=== PATIENT | female | born 1965 | race Caucasian/White ===

== ENCOUNTER 2017-08-21 01:24 | Emergency (ER) | payer OTHER ==
[2017-08-21 01:39] VITALS: BMI 33.2
--- NOTE | 2017-08-21 02:26 | ED PDOC ---
Arrival/HPI - General Chief Complaint: Alcohol Ingestion Time Seen by Provider: 08/21/17 01:59 Historian: EMS, Police EM Caveat: Uncooperative - History of Present Illness Narrative History of Present Illness (Text): 08/21/17 02:23 A 52 year old female, whose past medical history includes alcohol abuse, is brought into the emergency department by Deidre ANNE after being found unconscious on a lawn. The patient was combative, verbally abusive with slurred speech upon arrival and a danger to staff. Patient ROS/HPI limited due to intoxication and uncooperativity. Time/Duration: Prior to Arrival Symptom Onset: Sudden Symptom Course: Unchanged Activities at Onset: Rest, Light Context: Street Past Medical History - Provider Review Nursing Documentation Reviewed: Yes - Psychiatric Hx Substance Use: No - Past Surgical History Past Surgical History: Non-Contributing Family/Social History - Physician Review Nursing Documentation Reviewed: Yes Family/Social History: No Known Family HX Smoking Status: Unknown If Ever Smoked Hx Alcohol Use: Yes Hx Substance Use: No Allergies/Home Meds Allergies/Adverse Reactions: Allergies Unobtainable Allergy (Verified 08/21/17 01:39) Home Medications: Home Meds Medication Instructions Recorded Confirmed Unobtainable 08/21/17 08/21/17 Review of Systems - Physician Review All systems were reviewed & negative as marked: Yes - Review of Systems Systems not reviewed;Unavailable: Intoxicated Physical Exam - Physical Exam Physical Exam Limitations: Intoxication, Uncooperative Vital Signs Reviewed: Yes (Pt too combative for exam,will sedate first) Vital Signs Pulse Resp BP Pulse Ox 08/21/17 01:59 102 H 22 111/60 98 Blood Pressure: Hypertensive Pulse: Tachycardic Respiratory Rate: Tachypneic Appearance: Positive for: Non-Toxic Pain Distress: None Mental Status: Positive for: Lethargic - Systems Exam Head: Present: Atraumatic Pupils: Present: PERRL Extroacular Muscles: Present: EOMI Conjunctiva: Present: Normal Ears: Present: Normal Mouth: Present: Moist Mucous Membranes Nose (External): Present: Atraumatic Nose (Internal): Present: Normal Inspection Neck: Present: Normal Range of Motion. No: MIDLINE TENDERNESS Respiratory/Chest: Present: Clear to Auscultation, Good Air Exchange Cardiovascular: Present: Regular Rate and Rhythm Abdomen: No: Tenderness, Rebound, Guarding Back: Present: Normal Inspection Upper Extremity: Present: Normal Inspection Lower Extremity: Present: Normal Inspection Neurological: Present: GCS=15 Skin: Present: Warm, Dry Lymphatic: No: Cervical Adenopathy Psychiatric: Present: Intoxicated Medical Decision Making ED Course and Treatment: 08/21/17 02:26 Impression: A 52 year old female is brought into the emergency department by Deidre ANNE after being found unconscious on a lawn. Plan: -- EKG -- Chest X-ray -- Labs -- Urinalysis -- Reassess and disposition Progress Notes: 08/21/17 02:28: Patient was given Ativan and Geodon and was placed in 4 point restraints as a result of her combative behavior. While waiting for medication to take effect, patient's family arrived to the emergency department and did not wish any further evaluation and are willing to take full custody of patient. Patient will be released to their care. Leaving Against Medical Advice (AMA): The patient is choosing to leave against medical advice. I have personally explained to the patient that choosing to do so may result in permanent bodily harm or . I have discussed at great length that without further evaluation and monitoring there may be unforeseen circumstances and/or deterioration causing permanent bodily harm or as a result of their choice. The patient is alert, oriented, and shows the mental capacity to make clear decisions regarding the patients health care at this time. The patient continues to wish to leave against medical advice. In light of the patients decision to leave against medical advice, follow-up has been arranged and the patient is aware of the importance to following up as instructed. The patient has been advised that they should return to the emergency room immediately if they change their mind at any time, or if their condition begins to change or worsen in any way. Reassessment Condition: Improving,but remains with symptoms - Medication Orders Current Medication Orders: Discontinued Medications Lorazepam (Ativan) 1 mg IM ONCE ONE PRN Reason: Protocol Stop: 08/21/17 02:43 Last Admin: 08/21/17 02:48 Dose: Not Given Non-Admin Reason: Patient Refused Ziprasidone (Geodon Inj) 20 mg IM STAT STA PRN Reason: Protocol Stop: 08/21/17 02:43 Last Admin: 08/21/17 01:59 Dose: 20 mg IM Administration Charges Document 08/21/17 01:59 SS (Rec: 08/21/17 02:48 SS [id number]) Injection Site MAR Injection Site Right Deltoid Charges for Administration # of IM Administrations 1 - Scribe Statement The provider has reviewed the documentation as recorded by the Galenibe Holly Garcia Provider Galenibe Attestation: All medical record entries made by the Scribe were at my direction and personally dictated by me. I have reviewed the chart and agree that the record accurately reflects my personal performance of the history, physical exam, medical decision making, and the department course for this patient. I have also personally directed, reviewed, and agree with the discharge instructions and disposition. Disposition/Present on Arrival - Present on Arrival Any Indicators Present on Arrival: No History of DVT/PE: No History of Uncontrolled Diabetes: No Urinary Catheter: No History of Decub. Ulcer: No History Surgical Site Infection Following: None - Disposition Have Diagnosis and Disposition been Completed?: Yes Diagnosis: Alcohol abuse Disposition: AGAINST MEDICAL ADVICE Disposition Time: 11:57 Patient Plan: Other Condition: FAIR Referrals: Cash Caldwell JD, MD [Primary Care Provider] - Follow up with primary Forms: [employer] ([place]an)
[2017-08-21 02:52] VITALS: BP 111/60; PULSE 102; RESP 22; O2SAT 98
== END 2017-08-21 02:51 | disposition left against medical advice (07) ==
LOC: ED 01:24
DX: F10.10 Alcohol abuse, uncomplicated (principal)
CPT/HCPCS: 96372; 99283; J3486